=== PATIENT | male | born 1955 | race Caucasian/White ===

== ENCOUNTER 2020-06-23 09:16 | Emergency (ER) | payer MEDICARE, MEDICAID ==
--- NOTE | 2020-06-23 10:52 | RADIOLOGY REPORT (SQ) ---
EXAM DESCRIPTION: CHEST SINGLE VIEW IMAGES COMPLETED DATE/TIME: 06/23/2020 10:40 am REASON FOR STUDY: bed 36 difficulty breathing/cough COMPARISON: None. EXAM PARAMETERS: NUMBER OF VIEWS: One view. TECHNIQUE: Single frontal radiographic view of the chest acquired. RADIATION DOSE: NA LIMITATIONS: None. FINDINGS: LUNGS AND PLEURA: No opacities, masses or pneumothorax. No pleural effusion. MEDIASTINUM AND HILAR STRUCTURES: No masses. Contour normal. HEART AND VASCULAR STRUCTURES: Heart normal in size. Normal vasculature. BONES: No acute findings. HARDWARE: None in the chest. OTHER: No other significant finding. IMPRESSION: NO ACUTE RADIOGRAPHIC FINDING IN THE CHEST. TECHNICAL DOCUMENTATION: JOB ID: [id number] 2010 [employer]- All Rights Reserved Reading location - IP/workstation name: [email or web address]
[2020-06-23 11:42] LABS: ABSOLUTE EOSINOPHILS # (AUTO) 0.3 10^3/uL (0.0-0.6); ABSOLUTE LYMPHOCYTES (AUTO) 1.7 10^3/uL (0.5-4.7); ABSOLUTE MONOCYTES (AUTO) 0.9 10^3/uL (0.1-1.4); ABSOLUTE NEUT (AUTO) 6.3 10^3/uL (1.7-8.2); BASOPHILS % (AUTO) 0.4 % (0-2); EOSINOPHILS % (AUTO) 3.6 % (0-6); HEMATOCRIT 48.2 % (37.9-51.0); LYMPHOCYTES % (AUTO) 18.4 % (13-45); MEAN CORPUSCULAR HEMOGLOBIN 29.2 pg (27.0-33.4); MEAN CORPUSCULAR HGB CONC 33.2 g/dL (32.0-36.0); MEAN CORPUSCULAR VOLUME 88 fl (80-97); MONOCYTES % (AUTO) 9.7 % (3-13); PLATELET COUNT 171 10^3/uL (150-450); RED BLOOD COUNT 5.48 10^6/uL (4.35-5.55); RED CELL DISTRIBUTION WIDTH 14.7 % (11.5-14.0); SEGMENTED NEUTROPHILS % (AUTO) 67.9 % (42-78); TOTAL CELLS COUNTED % (AUTO) 100 %; WHITE BLOOD COUNT 9.2 10^3/uL (4.0-10.5)
[2020-06-23 12:00] LABS: ALBUMIN 4.4 g/dL (3.5-5.0); ALKALINE PHOSPHATASE 66 U/L (38-126); ANION GAP 9 (5-19); ASPARTATE AMINO TRANSFERASE 32 U/L (17-59); BILIRUBIN,DIRECT 0.2 mg/dL (0.0-0.4); BILIRUBIN,TOTAL 0.6 mg/dL (0.2-1.3); BLOOD UREA NITROGEN 24 mg/dL (7-20); CALCIUM 9.7 mg/dL (8.4-10.2); CARBON DIOXIDE 27 mmol/L (22-30); CHLORIDE 105 mmol/L (98-107); CREATINE KINASE 157 U/L (55-170); GLUCOSE 114 mg/dL (75-110); POTASSIUM 4.7 mmol/L (3.6-5.0); TOTAL PROTEIN 7.6 g/dL (6.3-8.2)
[2020-06-23 12:10] LABS: CREATINE KINASE MB 1.63 ng/mL (<4.55)
[2020-06-23 12:14] LABS: TROPONIN I < 0.012 ng/mL
[2020-06-23] MEDS ORDERED: METHYLPREDNISOLONE INJ 125 MG/2 ML SDV IV ONE (12:22)
[2020-06-23] MEDS ORDERED: CEFTRIAXONE 1 GM/D5W RTU 1 GM/50 ML RTUPB IV ONE (12:23)
[2020-06-23] MEDS ORDERED: NORMAL SALINE 1000 ML 1,000 ML IV ONE (12:24)
[2020-06-23] MEDS ORDERED: IPRATROPIUM/ALBUTEROL 0.5-2.5 MG/3 ML AMPUL NEB ONE (12:25)
--- NOTE | 2020-06-23 12:32 | ER Document Report ---
ED General - General Chief Complaint: Shortness Of Breath Stated Complaint: COUGH Time Seen by Provider: 06/23/20 10:55 - HPI Notes: Chief complaint: Cough History of present illness: 64-year-old male cigarette smoker with longstanding history of COPD visiting here from [place] noting exacerbation of his COPD symptoms over the last 3 to 4 days. He is especially bothered now with nocturnal cough. He is producing yellow sputum. No hemoptysis. No fever chills. No vomiting. No chest pain. Patient has been traveling but denies any discrete known exposure to Covid. He has not been tested for Covid previously. Presently smokes about 1/2 pack of cigarettes per day. He does not use oxygen. He is not chronically on steroids. He has never required intubation. He uses some type of unknown long-acting inhaler and also uses albuterol as a rescue inhaler. He is used this multiple times in the last 24 hours. Notes that about twice a year he gets a COPD flare which usually responds very well to steroids and this is specifically why he came in today. He denies any cardiac history. He is not diabetic. - Related Data Allergies/Adverse Reactions: acetaminophen [From Tylenol] Allergy (Verified 06/23/20 09:24) chlorpromazine [From Thorazine] Allergy (Verified 06/23/20 09:24) haloperidol [From Haldol] Allergy (Verified 06/23/20 09:24) Past Medical History - General Information source: Patient - Social History Smoking Status: Current Every Day Smoker Frequency of alcohol use: Occasional Drug Abuse: None Lives with: Family Family History: Reviewed & Not Pertinent - Past Medical History Cardiac Medical History: Reports: Hx Hypercholesterolemia, Hx Hypertension Pulmonary Medical History: Reports: Hx COPD Endocrine Medical History: Denies: Hx Diabetes Mellitus Type 1, Hx Diabetes Mellitus Type 2 Past Surgical History: Reports: Hx Herniorrhaphy Review of Systems - Review of Systems Notes: Constitutional: Negative for fever. HENT: Negative for sore throat. Eyes: Negative for visual changes. Cardiovascular: Negative for chest pain. Respiratory: As per HPI. Gastrointestinal: Negative for abdominal pain, vomiting or diarrhea. Genitourinary: Negative for dysuria. Musculoskeletal: Negative for back pain. Skin: Negative for rash. Neurological: Negative for headaches, weakness or numbness. 10 point ROS negative except as marked above and in HPI. Physical Exam - Vital signs Vitals: Temp Pulse Resp BP Pulse Ox 98.2 F 95 19 175/90 H 95 06/23/20 09:25 06/23/20 09:25 06/23/20 09:25 06/23/20 09:25 06/23/20 09:25 - Notes Notes: GENERAL: Male patient approximately stated age with rattling cough otherwise lilli earing in no acute distress. SKIN: Good turgor no rashes. HEAD: Normocephalic atraumatic. EYES: PERRLA. EOMI. Conjunctivae and sclerae clear. EARS: CANALS AND TMS CLEAR. NOSE: CLEAR. MOUTH: Moist mucosa. Good dentition. No stridor or edema. No drooling. NECK: Supple. No masses or thyromegaly. No adenopathy. Carotids 2+ without bruits. No JVD. BACK: Symmetrical without tenderness. CHEST: Increased AP diameter of chest. Respirations unlabored. Rattling cough. Breath sounds symmetrical with mild diffuse wheezing. HEART: Regular rhythm. No murmur gallop or rub. ABDOMEN: Soft nontender without masses, organomegaly or rebound. Bowel sounds normally active. No bruits. GENITALIA: Deferred. EXTREMITIES: No edema. No calf tenderness. Cap refill less than 1.5 seconds. Dorsalis pedis and posterior tibial pulses 3+ and symmetrical. NEUROLOGICAL: GCS 15. Alert and oriented x3. Normal gait. Fluent speech. Cranial nerves II through XII intact. Sensorimotor and cerebellar normal. Normal tone. PSYCHIATRIC: Appropriate affect. Course - Re-evaluation Re-evalutation: 06/23/20 14:18 Clinically this man has acute exacerbation of COPD. Chest x-ray did not show any pneumonia. He is oxygenating well. His Covid screen is negative. He received IV normal saline, IV Rocephin and IV Solu-Medrol in addition to DuoNeb treatment. He symptomatically improved and appears stable for discharge. Findings, clinical impression and plan of treatment have been discussed with patient/family. Understanding of current findings and recommendations has been acknowledged by them and there is agreement regarding disposition and follow-up. - Vital Signs Vital signs: Temp Pulse Resp BP Pulse Ox 98.2 F 95 25 H 183/89 H 94 06/23/20 09:25 06/23/20 09:25 06/23/20 13:05 06/23/20 13:06 06/23/20 13:01 - Laboratory Results Result Diagrams: 06/23/20 11:15 06/23/20 11:15 Laboratory Results Interpreted: 06/23/20 06/23/20 11:15 11:15 RDW 14.7 H BUN 24 H Glucose 114 H Critical Laboratory Results Reviewed: No Critical Results - Radiology Results Radiology Results Interpreted: 06/23/20 12:32 Chest X-Ray 06/23/20 10:04 IMPRESSION: NO ACUTE RADIOGRAPHIC FINDING IN THE CHEST. Critical Radiology Results Reviewed: No Critical Results Discharge - Discharge Clinical Impression: Acute exacerbation of chronic obstructive pulmonary disease (COPD) Condition: Stable Disposition: HOME, SELF-CARE Additional Instructions: Return here as needed for new or worsening symptoms: Increasing shortness of breath Pain that is worsening or unimproved Uncontrolled vomiting High fever or shaking chills Overall worsening Take prescribed medications as directed. Stop smoking. Follow-up with your doctor within the next 1 week Prescriptions: Prednisone [Deltasone 20 mg Tablet] 2 tab PO DAILY 5 Days tablet Guaifenesin/Codeine Phos [Robitussin-AC Syrup 59 ml] 10 ml PO QIDP PRN 4 Days #120 ml PRN Reason: Forms: Smoking Cessation Education
[2020-06-23 14:22] LABS: APPEARANCE,URINE CLEAR; BILIRUBIN,URINE NEGATIVE (NEGATIVE); COLOR,URINE YELLOW; GLUCOSE, URINE NEGATIVE (NEGATIVE); KETONES,URINE NEGATIVE (NEGATIVE); LEUKOCYTE ESTERASE,URINE NEGATIVE (NEGATIVE); NITRITE,URINE NEGATIVE (NEGATIVE); PROTEIN,URINE 100 mg/dL (NEGATIVE); URINE SPECIFIC GRAVITY 1.027; UROBILINOGEN,URINE NEGATIVE mg/dL (<2.0)
[2020-06-23 15:17] VITALS: BP 185/93
--- NOTE | 2020-06-23 18:48 | EKG REPORT ---
SEVERITY:- ABNORMAL ECG - SINUS RHYTHM NONSPECIFIC T ABNORMALITIES, LATERAL LEADS MINIMAL ST ELEVATION, ANTERIOR LEADS : Confirmed by: Butch Pantoja MD 23-Jun-2020 18:48:11
== END 2020-06-23 14:40 | disposition home or self-care (01) ==
LOC: ER 09:16
DX: J44.1 Chronic obstructive pulmonary disease with (acute) exacerbation (principal); R05 Cough; I10 Essential (primary) hypertension; F17.210 Nicotine dependence, cigarettes, uncomplicated; Z79.899 Other long term (current) drug therapy; Z88.8 Allergy status to other drugs, medicaments and biological substances; Z20.822 Contact with and (suspected) exposure to COVID-19
CPT/HCPCS: 93005; 94640; 99284; 96361; 96375; 96365; 36415; 87040; 82553; 82550; 85025; 0202U; 80053; 81001; 84484; 71045; 93010; J2930; J7030; J0696